=== PATIENT | male | born 1970 | race Caucasian/White ===

== ENCOUNTER 2016-11-09 16:22 | Emergency (ER) | payer OTHER ==
[2016-11-09 16:30] VITALS: BP 138/79
[2016-11-09] MEDS ORDERED: Acetaminophen/HYDROcodone 325-5 MG Tab PO ONE (16:38)
--- NOTE | 2016-11-09 17:01 | EDM.PDOC ---
ED HPI GENERAL MEDICAL PROBLEM - General Chief Complaint: Lower Extremity Injury/Pain Stated Complaint: RT LEG PAIN Time Seen by Provider: 11/09/16 16:30 Source of Information: Reports: Patient History Limitations: Reports: No Limitations - History of Present Illness INITIAL COMMENTS - FREE TEXT/NARRATIVE: 45 yo male was transferring weight at work today and felt a pop and pain in his R knee. Has increased pain now with movement of that knee. No hx of knee issues. Has not noticed any swelling. Most of the pain is behind the knee. Onset: Today Onset Date: 11/09/16 Onset Time: 16:00 Duration: Minutes:, Constant Location: Reports: Lower Extremity, Right Quality: Reports: Ache Severity: Moderate Improves with: Reports: Rest Worsens with: Reports: Movement Context: Reports: Trauma (Transferring weight at work. ) Associated Symptoms: Reports: No Other Symptoms Treatments [employer]: Reports: Other (see below) (None) Right Knee Pain Score (Numeric/FACES): 6 - Related Data Allergies Allergy/AdvReac Type Severity Reaction Status Date / Time CATS Allergy Blurred Uncoded 11/09/16 16:27 Vision Home Meds: Home Meds Acetaminophen/HYDROcodone [[place] 325-5 MG] 1 - 2 tab PO Q4H PRN #30 tab [Rx] Past Medical History - Past Health History Medical/Surgical History: Denies Medical/Surgical History Social & Family History - Tobacco Use Smoking Status *Q: Former Smoker Used Tobacco, but Quit: Yes Month Tobacco Last Used: QUIT 10 YEARS AGO - Caffeine Use Caffeine Use: Reports: None - Recreational Drug Use Recreational Drug Use: No Review of Systems - Review of Systems Review Of Systems: See Below Constitutional: Reports: No Symptoms Musculoskeletal: Reports: Joint Pain (R knee) Skin: Reports: No Symptoms Neurological: Reports: No Symptoms Psychiatric: Reports: No Symptoms ED EXAM, GENERAL - Physical Exam Exam: See Below Exam Limited By: No Limitations General Appearance: Alert, WD/WN, No Apparent Distress, Obese Ears: Hearing Grossly Normal Extremities: Normal Inspection, No Pedal Edema, Limited Range of Motion, Other ( No ligamentous laxity. ROM decreased due to pain. No calf pain. No visible effusion. No joint line tenderness. ). No: Redness Neurological: Alert, Oriented, CN II-XII Intact, No Motor/Sensory Deficits Psychiatric: Normal Affect, Normal Mood Skin Exam: Warm, Dry, Intact, Normal Color, No Rash Lymphatic: No Adenopathy Course - Vital Signs Last Recorded V/S: Last Vital Signs Temp 37.1 C 11/09/16 16:29 Pulse 83 11/09/16 16:29 Resp 18 11/09/16 16:29 BP 138/79 11/09/16 16:29 Pulse Ox 98 11/09/16 16:29 - Orders/Labs/Meds Meds: Medications Discontinued Medications Generic Name Dose Route Start Last Admin Trade Name Freq PRN Reason Stop Dose Admin Hydrocodone Bitart/Acetaminophen 2 tab 11/09/16 16:38 11/09/16 16:53 [place] 325-5 Mg PO 11/09/16 16:39 2 tab ONETIME ONE Administration Departure - Departure Time of Disposition: 17:01 Disposition: Home, Self-Care 01 Condition: Good Clinical Impression: Knee pain, acute Qualifiers: Laterality: right Qualified Code(s): M25.561 - Pain in right knee - Discharge Information Prescriptions: Acetaminophen/HYDROcodone [[place] 325-5 MG] 1 - 2 tab PO Q4H PRN #30 tab PRN Reason: Pain Forms: ED Department Discharge Additional Instructions: Wear immobilizer for knee protection and use crutches to assist with ambulation. Take ibuprofen 600 mg every 6 hrs with food and add [place] for additional pain relief if needed. Follow up with orthopedics in [place] for further work up and treatment.
== END 2016-11-09 16:57 | disposition home or self-care (01) ==
LOC: FB.ED 16:22
DX: M25.561 Pain in right knee (principal); Z91.048 Other nonmedicinal substance allergy status; Z87.891 Personal history of nicotine dependence
CPT/HCPCS: 99284; A9270